=== PATIENT | female | born 2000 | race Asian ===

== ENCOUNTER 2019-05-29 08:22 | Outpatient (CLI) | payer OTHER ==
[2019-05-29] MEDS ORDERED: LANTUS100 UNIT/M SC (08:42)
== END 2019-05-29 08:25 | disposition short-term general hospital (02) ==
LOC: AMB 08:22
DX: S09.90XA Unspecified injury of head, initial encounter (principal); Z3A.18 18 weeks gestation of pregnancy; W18.09XA Striking against other object with subsequent fall, initial encounter; Y92.511 Restaurant or cafe as the place of occurrence of the external cause
CPT/HCPCS: A0425; A0429

== ENCOUNTER 2019-05-29 08:26 | Emergency (ER) | payer OTHER ==
[~2019-05-29] VITALS: Ht 170.2 cm; Wt 92.1 kg
[2019-05-29 08:26] VITALS: TEMP 98.1
[2019-05-29] MEDS ORDERED: LANTUS100 UNIT/M SC (08:42)
[2019-05-29 09:45] LABS: PLATELET COUNT 239 K/uL (152-353)
[2019-05-29 09:46] LABS: POTASSIUM 4.2 mmol/L (3.6-5.2)
[2019-05-29 13:37] VITALS: BP 131/68
== END 2019-05-29 13:37 | disposition home or self-care (01) ==
LOC: ED 08:31
PROVIDERS: Family Medicine
DX: S00.83XA Contusion of other part of head, initial encounter (principal); O24.912 Unspecified diabetes mellitus in pregnancy, second trimester; Z79.4 Long term (current) use of insulin; Z3A.18 18 weeks gestation of pregnancy; W18.09XA Striking against other object with subsequent fall, initial encounter; Y92.511 Restaurant or cafe as the place of occurrence of the external cause
CPT/HCPCS: 80053; 81000; 81002; 82962; 85027; 96360; 96372; 99284; J1815

== ENCOUNTER 2019-05-31 10:38 | Outpatient (CLI) | payer OTHER ==
[~2019-05-31 10:38] MED LIST: LANTUS100 UNIT/M SC
== END 2019-05-31 10:44 | disposition short-term general hospital (02) ==
LOC: AMB 10:38
DX: R51 Headache (principal); Z33.1 Pregnant state, incidental
CPT/HCPCS: A0425; A0427

== ENCOUNTER 2019-05-31 10:44 | Emergency (ER) | payer OTHER ==
[~2019-05-31] VITALS: Ht 170.2 cm; Wt 92.1 kg
[2019-05-31 11:08] VITALS: TEMP 98.2
[2019-05-31 13:38] VITALS: BP 112/52
== END 2019-05-31 13:56 | disposition home or self-care (01) ==
LOC: ED 10:44
DX: R51 Headache (principal); Z33.1 Pregnant state, incidental
CPT/HCPCS: 99282

== ENCOUNTER 2019-06-15 13:42 | Emergency (ER) | payer OTHER ==
[~2019-06-15] VITALS: Ht 170.2 cm; Wt 97.1 kg
[2019-06-15] MEDS ORDERED: CELEXA20 MG PO (14:09)
[2019-06-15 15:03] VITALS: BP 130/58; TEMP 98.7
== END 2019-06-15 15:03 | disposition home or self-care (01) ==
LOC: ED 13:42
DX: K08.89 Other specified disorders of teeth and supporting structures (principal)
CPT/HCPCS: 99284

== ENCOUNTER 2019-07-09 00:46 | Emergency (ER) | payer OTHER ==
[~2019-07-09] VITALS: Ht 170.2 cm; Wt 98.9 kg
[~2019-07-09 00:46] MED LIST changes: +CELEXA20 MG PO
[2019-07-09 00:55] VITALS: BP 133/66; TEMP 99.1
== END 2019-07-09 03:02 | disposition home or self-care (01) ==
LOC: ED 00:46
DX: B37.3 Candidiasis of vulva and vagina (principal); O23.592 Infection of other part of genital tract in pregnancy, second trimester; Z3A.24 24 weeks gestation of pregnancy
CPT/HCPCS: 81000; 99284

== ENCOUNTER 2019-08-04 23:21 | Emergency (ER) | payer OTHER ==
[~2019-08-04] VITALS: Ht 170.2 cm; Wt 104.3 kg
[2019-08-04] MEDS ORDERED: BASAGLAR K100 UNIT/M SC (23:46)
[2019-08-05 00:41] LABS: POTASSIUM 4.2 mmol/L (3.6-5.2)
[2019-08-05 00:53] LABS: PLATELET COUNT 243 K/uL (152-353)
[2019-08-05 02:14] VITALS: BP 129/84; TEMP 98.1
== END 2019-08-05 02:14 | disposition home or self-care (01) ==
LOC: ED 23:21
PROVIDERS: Emergency Medicine
DX: O24.912 Unspecified diabetes mellitus in pregnancy, second trimester (principal); Z79.4 Long term (current) use of insulin; O23.592 Infection of other part of genital tract in pregnancy, second trimester; Z3A.23 23 weeks gestation of pregnancy
CPT/HCPCS: 80053; 81000; 82962; 85027; 96360; 96372; 99284; J1815